=== PATIENT | female | born 1980 | race Caucasian/White ===

== ENCOUNTER → 2020-06-18 | Outpatient (CLI) | payer BC ==
[2020-06-19 08:15] LABS: PROLACTIN 4.4 ng/mL (4.8-23.3); VITAMIN D, 25-HYDROXY 36.5 ng/mL (30.0-100.0)
== END ==
LOC: LAB 07:24
PROVIDERS: Internal Medicine
DX: E22.1 Hyperprolactinemia (principal); E55.9 Vitamin D deficiency, unspecified
CPT/HCPCS: 36415; 84146; 84439; 84443

== ENCOUNTER → 2021-07-01 | Outpatient (CLI) | payer BC ==
[~2021-07-01] MED LIST: BENADRYL 50MG C50 MG PO; BENADRYL ALLERG25 MG PO; EPIPEN 2-P0.3 MG/0.3 INJ; MEDROL4 MG PO; PEPCID40 MG PO; PREDNISONE 20 M20 MG PO
[2021-07-01 07:46] LABS: BUN/CREATININE RATIO 17 (0-10)
[2021-07-02 09:19] LABS: VITAMIN D, 25-HYDROXY 43.7 ng/mL (30.0-100.0)
== END ==
LOC: LAB 06:02
PROVIDERS: Internal Medicine; Nurse Practitioner Family
DX: E22.1 Hyperprolactinemia (principal); E55.9 Vitamin D deficiency, unspecified; E66.9 Obesity, unspecified
CPT/HCPCS: 36415; 80053; 80061; 83036; 84146; 84439; 84443